=== PATIENT | female | born 1985 | race Caucasian/White ===

== ENCOUNTER 2020-05-21 09:00 | Day surgery (SDC) | payer BC ==
[2020-05-21] MEDS ORDERED: Xylocaine 1% Vial 30 ML PF IJ ONE (09:01)
[2020-05-21] MEDS ORDERED: BUPIVACAINE 0.5% VIAL IJ ONE (09:01)
[2020-05-21] MEDS ORDERED: Depo-Medrol 40 MG/ML IM ONE (09:01)
[2020-05-21] MEDS ORDERED: Ketamine HCl 50 MG/ML ONE (10:04)
[2020-05-21] MEDS ORDERED: DIPRIVAN 200 MG/20 ML IV ONE (10:04)
--- NOTE | 2020-05-21 11:07 | XRAY ---
Indication: Left SI joint and piriformis muscle injection. Intraoperative fluoroscopy was provided for 47 seconds. 3 digital spot images submitted for interpretation demonstrates posterior needle tip projecting over the inferior left SI joint. Second posterior needle tip projects over the expected left piriformis muscle with small amount of contrast injected for needle tip placement. Correlate with intraoperative findings/report.
--- NOTE | 2020-05-21 12:27 | XRAY ---
47 seconds fluoroscopy time in surgery for left SI joint and piriformis injections.
[2020-05-21] MEDS ORDERED: Lactated Ringers 1,000 ML IV ONE (14:25)
== END 2020-05-21 10:35 | disposition home or self-care (01) ==
LOC: SDC-PAIN 09:00
PROVIDERS: ATTEND Psychiatry & Neurology Pain Medicine
DX: M79.18 Myalgia, other site (principal); M46.1 Sacroiliitis, not elsewhere classified; I10 Essential (primary) hypertension; E11.9 Type 2 diabetes mellitus without complications; M32.9 Systemic lupus erythematosus, unspecified; Z79.899 Other long term (current) drug therapy
CPT/HCPCS: 20552; 27096; 72202; 77002; 82962; J1030; J2001; J2704; Q9966; G0260

== ENCOUNTER 2020-06-04 12:16 | Day surgery (SDC) | payer BC ==
[2020-06-04] MEDS ORDERED: Xylocaine 1% Vial 30 ML PF IJ ONE (12:17)
[2020-06-04] MEDS ORDERED: BUPIVACAINE 0.5% VIAL IJ ONE (12:17)
[2020-06-04] MEDS ORDERED: Decadron 4 MG INJ IV ONE (12:17)
[2020-06-04] MEDS ORDERED: Depo-Medrol 40 MG/ML IM ONE (12:17)
[2020-06-04] MEDS ORDERED: DIPRIVAN 200 MG/20 ML IV ONE (14:21)
[2020-06-04] MEDS ORDERED: Ketamine HCl 50 MG/ML ONE (14:21)
[2020-06-04] MEDS ORDERED: SUBLIMAZE 100 MCG/2 ML ONE (14:21)
--- NOTE | 2020-06-04 15:13 | XRAY ---
23 seconds fluoroscopy time in surgery for right SI joint and piriformis muscle injections.
--- NOTE | 2020-06-04 15:13 | XRAY ---
Indication: Right SI joint and piriformis muscle injection. Intraoperative fluoroscopy was provided for 23 seconds. 3 digital spot images submitted for interpretation demonstrates posterior needle tip projecting over the inferior right SI joint. A second needle tip projects over the expected right piriformis muscle with small amount of contrast injected for needle tip placement. Correlate with intraoperative findings/report.
[2020-06-04] MEDS ORDERED: Lactated Ringers 1,000 ML IV ONE (15:31)
== END 2020-06-04 14:51 | disposition home or self-care (01) ==
LOC: SDC-PAIN 12:16
PROVIDERS: ATTEND Psychiatry & Neurology Pain Medicine
DX: M46.1 Sacroiliitis, not elsewhere classified (principal); M79.18 Myalgia, other site; E11.9 Type 2 diabetes mellitus without complications; I10 Essential (primary) hypertension; M32.9 Systemic lupus erythematosus, unspecified; Z79.899 Other long term (current) drug therapy
CPT/HCPCS: 20552; 27096; 72202; 77002; 82962; J1030; J1100; J2001; J2704; J3010; G0260

== ENCOUNTER 2021-09-23 09:04 | Day surgery (SDC) | payer BC ==
[2021-09-23] MEDS ORDERED: Depo-Medrol 40 MG/ML IM ONE (09:05)
[2021-09-23] MEDS ORDERED: Decadron 4 MG INJ IV ONE (09:05)
[2021-09-23] MEDS ORDERED: Xylocaine 1% Vial 30 ML PF IJ ONE (09:05)
[2021-09-23] MEDS ORDERED: BUPIVACAINE 0.5% VIAL IJ ONE (09:05)
[2021-09-23] MEDS ORDERED: Lactated Ringers 1,000 ML IV ONE (10:16)
[2021-09-23] MEDS ORDERED: DIPRIVAN 200 MG/20 ML IV ONE (10:21)
--- NOTE | 2021-09-23 11:51 | XRAY ---
Indication: Left SI joint and left piriformis injections. Intraoperative fluoroscopy provided for 1 minute 16 seconds. 3 digital spot image submitted for interpretation demonstrates posterior needle tip projecting over the inferior left SI joint. Second needle tip projects over left piriformis muscle with small amount of contrast injected. Correlate with intraoperative findings/report.
--- NOTE | 2021-09-23 12:08 | XRAY ---
1 minute and 16 seconds fluoroscopy time in surgery for injections of the left SI joint and left piriformis.
== END 2021-09-23 10:55 | disposition home or self-care (01) ==
LOC: SDC-PAIN 09:04
PROVIDERS: ATTEND Psychiatry & Neurology Pain Medicine
DX: M46.1 Sacroiliitis, not elsewhere classified (principal); M79.18 Myalgia, other site; I10 Essential (primary) hypertension; E11.9 Type 2 diabetes mellitus without complications; Z79.899 Other long term (current) drug therapy
CPT/HCPCS: 20552; 27096; 72202; 77002; 82947; J1030; J1100; J2001; J2704; Q9966; G0260

== ENCOUNTER 2021-12-23 06:54 | Day surgery (SDC) | payer OTHER ==
[2021-12-23] MEDS ORDERED: BUPIVACAINE 0.5% VIAL IJ ONE (06:55)
[2021-12-23] MEDS ORDERED: Xylocaine 1% Vial 30 ML PF IJ ONE (06:55)
[2021-12-23] MEDS ORDERED: Depo-Medrol 40 MG/ML IM ONE (06:55)
[2021-12-23] MEDS ORDERED: Decadron 4 MG INJ IV ONE (06:55)
[2021-12-23] MEDS ORDERED: DIPRIVAN 200 MG/20 ML IV ONE (09:03)
[2021-12-23] MEDS ORDERED: Lactated Ringers 1,000 ML IV ONE (09:45)
--- NOTE | 2021-12-23 10:28 | XRAY ---
Indication: Bilateral SI joint and piriformis injections. Intraoperative fluoroscopy provided for 58 seconds. 6 digital spot image submitted for interpretation demonstrates posterior needle tip projecting over the inferior left and right right SI joints. Additional posterior needle tip projects over the expected left and right piriformis muscle with small amount of contrast injected for needle tip placement. Correlate with intraoperative findings/report.
--- NOTE | 2021-12-23 10:30 | XRAY ---
58 seconds of fluoroscopy was used in surgery for bilateral SI joints and bilateral piriformis injections.
== END 2021-12-23 09:30 | disposition home or self-care (01) ==
LOC: SDC-PAIN 06:54
PROVIDERS: ATTEND Psychiatry & Neurology Pain Medicine
DX: M46.1 Sacroiliitis, not elsewhere classified (principal); E11.9 Type 2 diabetes mellitus without complications; Z79.899 Other long term (current) drug therapy
CPT/HCPCS: 20552; 27096; 72202; 77002; 82947; J1030; J1100; J2001; J2704; Q9966; G0260

== ENCOUNTER 2022-09-22 08:15 | Day surgery (SDC) | payer OTHER ==
[2022-09-22] MEDS ORDERED: LIDOCAINE HCL 1% 50 MG/5 ML VL PF IJ ONE (08:16)
[2022-09-22] MEDS ORDERED: Depo-Medrol 40 MG/ML IM ONE (08:16)
[2022-09-22] MEDS ORDERED: Decadron 4 MG INJ IV ONE (08:16)
[2022-09-22] MEDS ORDERED: Sodium Chloride 0.9(Preservative Free) 10 ML IJ ONE (08:16)
--- NOTE | 2022-09-22 10:31 | XRAY ---
Indication: Left L4-S1 transforaminal ANJUM. Intraoperative fluoroscopy provided for 27 seconds. 5 digital spot image submitted for interpretation demonstrates posterior needle tips projecting over the expected left L4 and L5 nerve roots. Small amount of contrast injected for needle tip placement. Correlate with intraoperative findings/report.
--- NOTE | 2022-09-22 10:32 | XRAY ---
Indication: Left piriformis injection. Intraoperative fluoroscopy provided for 16 seconds. Single digital spot image submitted for interpretation demonstrates posterior needle tip projecting over the expected left piriformis muscle. Small amount of contrast injected for needle tip placement. Correlate with intraoperative findings/report.
--- NOTE | 2022-09-22 10:46 | XRAY ---
16 seconds of fluoroscopy was used in surgery for a left piriformis injection.
--- NOTE | 2022-09-22 10:46 | XRAY ---
27 seconds of fluoroscopy was used in surgery for a left L4-S1 transforaminal ANJUM.
[2022-09-22] MEDS ORDERED: Lactated Ringers 1,000 ML IV ONE (12:50)
== END 2022-09-22 10:05 | disposition home or self-care (01) ==
LOC: SDC-PAIN 08:15
PROVIDERS: ATTEND Psychiatry & Neurology Pain Medicine
DX: M54.16 Radiculopathy, lumbar region (principal); M79.18 Myalgia, other site; E11.9 Type 2 diabetes mellitus without complications; Z79.899 Other long term (current) drug therapy
CPT/HCPCS: 20552; 64483; 64484; 72100; 72170; 77002; 77003; 82947; J1030; J1100; J2001; Q9966

== ENCOUNTER 2022-10-27 07:50 | Day surgery (SDC) | payer OTHER ==
[2022-10-27] MEDS ORDERED: D50W 50 ml Abboject IV ONE (07:51)
[2022-10-27] MEDS ORDERED: Depo-Medrol 40 MG/ML IM ONE (07:51)
[2022-10-27] MEDS ORDERED: Sodium Chloride 0.9(Preservative Free) 10 ML IJ ONE (07:51)
--- NOTE | 2022-10-27 11:19 | XRAY ---
Indication: Caudal ANJUM. Intraoperative fluoroscopy provided for 17 seconds. 2 digital spot image submitted for interpretation demonstrates caudal needle tip projecting mid sacrum. Small amount of contrast injected for needle tip placement. Correlate with intraoperative findings/report.
--- NOTE | 2022-10-27 11:22 | XRAY ---
17 seconds fluoroscopy time in surgery for caudal ANJUM.
[2022-10-27] MEDS ORDERED: Lactated Ringers 1,000 ML IV ONE (13:25)
== END 2022-10-27 09:40 | disposition home or self-care (01) ==
LOC: SDC-PAIN 07:50
PROVIDERS: ATTEND Psychiatry & Neurology Pain Medicine
DX: M54.16 Radiculopathy, lumbar region (principal); E11.9 Type 2 diabetes mellitus without complications; Z79.899 Other long term (current) drug therapy
CPT/HCPCS: 62323; 72220; 77003; 82947; J1030; Q9966

== ENCOUNTER 2024-04-11 07:51 | Day surgery (SDC) | payer OTHER ==
[2024-04-11] MEDS ORDERED: DIPRIVAN 200 MG/20 ML IV ONE (09:37)
--- NOTE | 2024-04-11 11:40 | XRAY ---
38 seconds of fluoroscopy was used in surgery for a bilateral sacroiliac joint injection.
--- NOTE | 2024-04-11 11:41 | XRAY ---
Indication: Bilateral SI joint injection. Intraoperative fluoroscopy provided for 38 seconds. 3 digital spot images submitted for interpretation demonstrates posterior needle tips projecting over the expected left and right SI joint. Small amount of contrast injected for needle tip placement. Correlate with intraoperative findings/report.
[2024-04-11] MEDS ORDERED: Lactated Ringers 1,000 ML IV ONE (12:06)
== END 2024-04-11 10:09 | disposition home or self-care (01) ==
LOC: SDC-PAIN 07:51
PROVIDERS: ATTEND Psychiatry & Neurology Pain Medicine
DX: M46.1 Sacroiliitis, not elsewhere classified (principal); E11.9 Type 2 diabetes mellitus without complications
CPT/HCPCS: 01992; 27096; 72202; 77002; 82947; G0260; J2704; Q9966